=== PATIENT | male | born 1940 | race Two or more races ===

== ENCOUNTER 2024-06-27 06:44 | Outpatient (RCR) | payer MEDICARE, MEDICAID, SELFPAY ==
[2024-06-27 09:00] LABS: Basophils Percent Auto 0.7 % (0.2-2.0); Eosinophils Absolute Auto 0.2 10^3/uL (0.0-0.7); Eosinophils Percent Auto 2.8 % (0.9-7.0); Hematocrit 31.9 % (42.0-54.0); Hemoglobin 10.2 g/dL (14.0-18.0); Immature Granulocytes Abs Auto 0.02 10^3/uL (0.00-0.03); Immature Granulocytes Pct Auto 0.4 % (0.0-0.5); Lymphocytes Absolute Auto 1.8 10^3/uL (1.2-3.8); Lymphocytes Percent Auto 31.7 % (20.5-60.0); Mean Corpuscular Hemoglobin 28.8 pg (25.9-34.0); Mean Corpuscular Volume 90.1 fL (80.0-94.0); Mean Platelet Volume 7.9 fL (9.5-13.5); Monocytes Absolute Auto 0.4 10^3/uL (0.3-0.8); Neutrophils Absolute Auto 3.3 10^3/uL (1.4-6.5); Neutrophils Percent Auto 57.4 % (43.0-75.0); Platelet Count 240 10^3/uL (150-450); Red Blood Count 3.54 10^6/uL (4.70-6.10); Red Cell Distribution Width 15.4 % (11.0-15.0); White Blood Count 5.7 10^3/uL (4.0-11.0)
[2024-06-27 09:29] LABS: Anion Gap 9.6; BUN Creatinine Ratio 13.7; Carbon Dioxide 29.9 mmol/L (21.0-32.0); Chloride 102 mmol/L (98-107); Estimated GFR (African America >60 (>=60 mL/min/1.73m^2); Estimated GFR (Non-African Ame 55 (>=60 mL/min/1.73m^2); Glucose 97 mg/dL (74-106); Potassium 4.5 mmol/L (3.5-5.1); Sodium 137 mmol/L (136-145)
== END 2024-09-23 23:59 | disposition home or self-care (01) ==
LOC: LAB 06:44
PROVIDERS: PCP Family Medicine; Visit Provider Family Medicine
DX: J44.9 Chronic obstructive pulmonary disease, unspecified (principal); I10 Essential (primary) hypertension; D64.9 Anemia, unspecified
CPT/HCPCS: 36415; 80048; 85025

== ENCOUNTER 2025-01-28 20:05 | Emergency (ER) | payer MEDICARE, MEDICAID, SELFPAY ==
[2025-01-28] VITALS (12 sets, daily range): BP systolic 124–134; BP diastolic 60; PULSE 61–70; TEMP 36.8; O2SAT 96–97; BMI 21.9
--- NOTE | 2025-01-28 20:26 | ECG_ITS ---
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 Measurements Intervals [place] Rate: 67 P: 254 SC: 178 QRS: 61 QRSD: 94 T: 68 QT: 382 QTc: 398 Interpretive Statements Normal sinus rhythm 3434 Septal myocardial infarction, age undetermined 9150 abnormal ECG No previous ECG available for comparison Electronically Signed On 01-29-2025 21:29:25 EDT by EAMON CASTELLANOS M.D.
[2025-01-28 20:29] LABS: Basophils Percent Auto 0.4 % (0.2-2.0); Eosinophils Absolute Auto 0.2 10^3/uL (0.0-0.7); Eosinophils Percent Auto 3.5 % (0.9-7.0); Hematocrit 31.3 % (42.0-54.0); Hemoglobin 10.1 g/dL (14.0-18.0); Immature Granulocytes Abs Auto 0.02 10^3/uL (0.00-0.03); Immature Granulocytes Pct Auto 0.4 % (0.0-0.5); Lymphocytes Absolute Auto 1.7 10^3/uL (1.2-3.8); Lymphocytes Percent Auto 33.8 % (20.5-60.0); Mean Corpuscular HGB Conc 32.3 g/dL (29.9-35.2); Mean Corpuscular Hemoglobin 30.3 pg (25.9-34.0); Mean Platelet Volume 8.7 fL (9.5-13.5); Monocytes Absolute Auto 0.5 10^3/uL (0.3-0.8); Monocytes Percent Auto 10.9 % (1.7-12.0); Neutrophils Absolute Auto 2.5 10^3/uL (1.4-6.5); Platelet Count 160 10^3/uL (150-450); Red Blood Count 3.33 10^6/uL (4.70-6.10); Red Cell Distribution Width 14.6 % (11.0-15.0); White Blood Count 4.9 10^3/uL (4.0-11.0)
--- NOTE | 2025-01-28 20:29 | ED.FALL1 ---
HPI HPI - Fall General Chief Complaint: Fall Stated Complaint: other Time Seen by Provider: 01/28/25 20:07 Source: patient Mode of arrival: ambulance Limitations: no limitations History of Present Illness HPI Narrative: This 84-year-old male is brought to the emergency department by EMS from [facility]. The patient states that he was getting up from a chair and the chair slid backwards behind him and he went to sit down and lost his balance falling and striking his head-possibly on the bed but he is uncertain. He has a hematoma of the right forehead area and a small laceration above his right eyebrow. He denies any loss of consciousness. He denies any neck pain. He denies any dizziness prior to falling. He is on Eliquis due to a history of atrial fibrillation. It was noted by EMS after he was transferred from their stretcher to our bed that there was some bleeding that appeared to be coming from his backside. He does have a small skin tear on his buttock. He states this has been there for a couple of months. Denies any chest pain or shortness of breath. He does have a history of several strokes and has contracture of the right hand and weakness on the right side of his body. Otherwise awake alert oriented and an excellent historian. Related Data Home Medications ?Medication ?Instructions ?Recorded ?Confirmed acetaminophen 325 mg capsule 325 mg PO Q6H PRN fever or pain 01/28/25 01/28/25 apixaban 5 mg tablet (Eliquis) 5 mg PO Q12H 01/28/25 01/28/25 atorvastatin 80 mg tablet 80 mg PO ONCE 01/28/25 01/28/25 budesonide 160 mcg-glycopyr 9 inh inhalation 01/28/25 mcg-formot 4.8 mcg/actuation HFA inhaler (Breztri Aerosphere) docusate sodium 100 mg capsule 100 mg PO DAILY 01/28/25 01/28/25 ferrous sulfate 325 mg (65 mg 325 mg PO DAILY 01/28/25 01/28/25 iron) tablet flecainide 100 mg tablet mg 01/28/25 flecainide 50 mg tablet 50 mg PO Q12H 01/28/25 01/28/25 furosemide 40 mg tablet 40 mg PO DAILY PRN edema 01/28/25 01/28/25 magnesium oxide 400 mg (241.3 mg 400 mg PO BID 01/28/25 01/28/25 magnesium) tablet multivitamin (One Daily tab PO DAILY 01/28/25 Multivitamin tablet) polyethylene glycol ea miscellaneous 01/28/25 sodium chloride 1,000 mg soluble 1,000 mg PO BID 01/28/25 01/28/25 tablet Allergies Allergy/AdvReac Type Severity Reaction Status Date / Time No Known Drug Allergies Allergy Verified 01/28/25 20:10 Opioid HPI Opioid Management Most Recent Pain and Opioid Data: Last Pain Scale 5 01/28/25, 20:23 Last MAR Pain Assessment 01/28/25, 20:56 Review of Systems ROS Status of ROS 10 or more systems reviewed and unremarkable except as noted in history and below Exam Narrative Exam Narrative: Vital signs and Nursing Notes reviewed: Patient is afebrile with a normal pulse, normal blood pressure, he is not hypoxic with pulse ox of 97% on room air General: Awake, alert, oriented, no acute distress, lying comfortably on the stretcher-GCS 15 HEENT: Normocephalic, 4 x 3 cm hematoma overlying the right frontal aspect of the scalp/forehead, approximately 1.5 cm superficial laceration above the right eyebrow - not involving the eye- no crepitus, no active bleeding noted- pupils are equal and reactive, no oral injury is noted, vision is grossly intact Neck: Supple, no midline bony vertebral tenderness or step-off Chest: Lungs are clear to auscultation with good air entry, there is no wheezing rhonchi or rales appreciated no accessory muscle use, patient is speaking in complete sentences-no chest wall tenderness to palpation CVS: Regular rate and rhythm S1-S2, no murmurs rubs or gallops, pulses are brisk and equal bilaterally ABD: Soft, nondistended, nontender, no rebound guarding or rigidity, bowel sounds are normal, no pulsatile masses appreciated, there is an approximately 1.5 cm skin tear on the left buttock with mild active bleeding, there is no sign of any extension of this into the perineum with no sign of necrotizing fasciitis Extremities: Moving all extremities, 2+ lower extremity swelling, feet are warm and sensate with normal pulses Skin: Normal in appearance without rash,pallor, petechiae or purpura Neuro: No focal deficits, speech is clear, vision is grossly intact, upper and lower extremity strength and sensation is intact with the exception of right hand contracture due to history of stroke Constitutional Vital Signs, click to edit/add: Last Vital Signs Temp 98.2 F 01/28/25 20:06 Pulse 61 01/28/25 22:07 Resp 14 01/28/25 22:07 BP 134/60 01/28/25 21:24 Pulse Ox 96 01/28/25 22:07 O2 Del Method Room Air 01/28/25 22:07 Course Vital Signs Vital signs: Vital Signs Temperature 98.2 F 01/28/25 20:06 Pulse Rate 63 01/28/25 20:06 Respiratory Rate 18 01/28/25 20:06 Pulse Oximetry 97 01/28/25 20:06 Oxygen Delivery Method Room Air 01/28/25 20:06 Temperature 98.2 F 01/28/25 20:06 Pulse Rate 61 01/28/25 22:07 Respiratory Rate 14 01/28/25 22:07 Blood Pressure 134/60 01/28/25 21:24 Pulse Oximetry 96 01/28/25 22:07 Oxygen Delivery Method Room Air 01/28/25 22:07 MDM - Fall MDM Narrative Medical decision making narrative: This 84-year-old male who is on Eliquis due to history of atrial fibrillation is brought to the emergency department by EMS from the assisted living where he currently resides. The patient was getting up from a chair that slid backwards and when he went to sit down he lost his footing and fell. He is not exactly sure what he hit his head on but possibly the bed or less likely the floor. The patient has had several strokes and has contracture of the right hand but is otherwise fairly independent. His GCS was 15. He had no gross focal deficits. He does have a hematoma and a small laceration on the right side of his forehead. He did not have any neck pain or stiffness. He denies any chest pain or shortness of breath. An EKG was ordered and was a atrial versus sinus rhythm limited by patient movement but otherwise normal. He was medicated with Tylenol for his head injury. The laceration over his right eyebrow was closed with Dermabond. He does have a small skin tear on the buttock area that has been present for a period of time. Treatment of this was discussed with the patient and his sister who is with him in the emergency department. We suggested a hydrocolloid topical dressing to encourage healing and keep the area dry. CT scan of the head was reviewed by radiology and is negative for acute findings. CT scan of the cervical spine was also reviewed by radiology and is negative for acute findings. He has a normal white count hemoglobin. Electrolytes are normal. Troponin and BNP were also normal. Chest x-ray does not show any acute findings-this was ordered due to the fact that the patient has some lower extremity swelling that he states comes and goes. He did not have any lower extremity injury or hip injury related to his fall. The results of the labs and CT scans were discussed with the patient and his sister. He request to be discharged back to the assisted living residence. His sister was able to provide transportation for him. He is otherwise stable for discharge. Anticipatory guidance was given to the patient and his sister with recommendation for return to the emergency department for change in his mental status, severe headache neck pain weakness numbness tingling or any concerns. Lab Data Attestation: I reviewed the patient's lab results. Labs: Lab Results 01/28/25 Range/Units 20:15 WBC 4.9 (4.0-11.0) 10^3/uL RBC 3.33 L (4.70-6.10) 10^6/uL Hgb 10.1 L (14.0-18.0) g/dL Hct 31.3 L (42.0-54.0) % MCV 94.0 (80.0-94.0) fL MCH 30.3 (25.9-34.0) pg MCHC 32.3 (29.9-35.2) g/dL RDW 14.6 (11.0-15.0) % Plt Count 160 (150-450) 10^3/uL MPV 8.7 L (9.5-13.5) fL Neut % (Auto) 51.0 (43.0-75.0) % Lymph % (Auto) 33.8 (20.5-60.0) % Harrison % (Auto) 10.9 (1.7-12.0) % Eos % (Auto) 3.5 (0.9-7.0) % Baso % (Auto) 0.4 (0.2-2.0) % Neut # (Auto) 2.5 (1.4-6.5) 10^3/uL Lymph # (Auto) 1.7 (1.2-3.8) 10^3/uL Harrison # (Auto) 0.5 (0.3-0.8) 10^3/uL Eos # (Auto) 0.2 (0.0-0.7) 10^3/uL Baso # (Auto) 0.0 (0.0-0.1) 10^3/uL Abs Immat Gran (auto) 0.02 (0.00-0.03) 10^3/uL Imm/Tot Granulo (auto) 0.4 (0.0-0.5) % Sodium 140 (136-145) mmol/L Potassium 4.4 (3.5-5.1) mmol/L Chloride 104 (98-107) mmol/L Carbon Dioxide 33.0 H (21.0-32.0) mmol/L Anion Gap 7.4 BUN 24.0 H (7.0-18.0) mg/dL Creatinine 1.26 (0.70-1.30) mg/dL Est GFR ( Amer) >60 (>=60 mL/min/1.73m^2) Est GFR (Non-Af Amer) 54 L (>=60 mL/min/1.73m^2) BUN/Creatinine Ratio 19.0 Glucose 113 H (74-106) mg/dL Calcium 8.8 (8.5-10.1) mg/dL Total Bilirubin 0.7 (0.2-1.0) mg/dL AST 16 (15-37) U/L ALT 22 (16-63) U/L Alkaline Phosphatase 106 (46-116) U/L Troponin I High Sens 6.7 (4.0-76.1) pg/mL NT-Pro-B Natriuret Pep 580.0 (<=1800.0) pg/mL Total Protein 6.4 (6.4-8.2) g/dL Albumin 3.5 (3.4-5.0) g/dL Globulin 2.9 g/dL Albumin/Globulin Ratio 1.2 ECG Data Attestation: I personally reviewed and interpreted this ECG as follows: (EKG interpretation limited by patient movement, shows an atrial rhythm at 67 bpm with a normal axis and no acute changes) Discharge Plan Discharge Chief Complaint: Fall Clinical Impression: Fall from standing, Facial laceration, Forehead contusion, Closed head injury Patient Disposition: Home, Self-Care Time of Disposition Decision: 21:45 Condition: Good Prescriptions / Home Meds: No Action atorvastatin 80 mg tablet 80 mg PO ONCE docusate sodium 100 mg capsule 100 mg PO DAILY Eliquis 5 mg tablet 5 mg PO Q12H ferrous sulfate 325 mg (65 mg iron) tablet 325 mg PO DAILY flecainide 50 mg tablet 50 mg PO Q12H furosemide 40 mg tablet 40 mg PO DAILY PRN (Reason: edema) magnesium oxide 400 mg (241.3 mg magnesium) tablet 400 mg PO BID multivitamin [One Daily Multivitamin] Tablet PO DAILY sodium chloride 1,000 mg tablet,soluble 1,000 mg PO BID polyethylene glycol Powder miscellaneous acetaminophen 325 mg capsule 325 mg PO Q6H PRN (Reason: fever or pain) flecainide 100 mg tablet Breztri Aerosphere 160-9-4.8 mcg/actuation HFA aerosol inhaler INHALATION Print Language: [place] Verde[place] Instructions: Fall Prevention for Older Adults (ED), Head Injury (ED), Skin Adhesive Care (ED), Hematoma (ED), Facial Contusion (ED) Referrals: SHIRLENE CASTILLO [Primary Care Provider, Family Practice] - 1 week Discharge Date/Time: 01/28/25 22:11 Procedures ED Procedure Instructions Procedures Procedures: Facial laceration overlying the right eyebrow was cleaned and dried and the wound edges were approximated and closed with Dermabond. Patient tolerated procedure well.
[2025-01-28 20:40] LABS: Alanine Aminotransferase 22 U/L (16-63); Albumin Globulin Ratio 1.2; Albumin Level 3.5 g/dL (3.4-5.0); Alkaline Phosphatase 106 U/L (46-116); Anion Gap 7.4; Aspartate Amino Transferase 16 U/L (15-37); Bilirubin Total 0.7 mg/dL (0.2-1.0); Calcium 8.8 mg/dL (8.5-10.1); Chloride 104 mmol/L (98-107); Estimated GFR (African America >60 (>=60 mL/min/1.73m^2); Estimated GFR (Non-African Ame 54 (>=60 mL/min/1.73m^2); Globulin 2.9 g/dL; Glucose 113 mg/dL (74-106); Potassium 4.4 mmol/L (3.5-5.1); Sodium 140 mmol/L (136-145); Total Protein 6.4 g/dL (6.4-8.2)
[2025-01-28 20:45] LABS: Troponin I High Sensitivity 6.7 pg/mL (4.0-76.1)
[2025-01-28] MEDS: ACETAMINOPHEN 325 MG TABLET 650 MG PO (20:56)
== END 2025-01-28 22:11 | disposition home or self-care (01) ==
PROVIDERS: Emergency Provider Emergency Medicine; PCP Family Medicine
DX: S09.8XXA Other specified injuries of head, initial encounter (principal); S00.83XA Contusion of other part of head, initial encounter; S01.111A Laceration without foreign body of right eyelid and periocular area, initial encounter; Z79.01 Long term (current) use of anticoagulants; I48.91 Unspecified atrial fibrillation; W07.XXXA Fall from chair, initial encounter; I69.998 Other sequelae following unspecified cerebrovascular disease; M24.541 Contracture, right hand
CPT/HCPCS: 12011; 36415; 70450; 71045; 72125; 80053; 83880; 84484; 85025; 93005; 99285